=== PATIENT | female | born 2000 | race African-American/Black ===

== ENCOUNTER 2019-10-28 19:13 | Emergency (ER) | payer OTHER ==
[2019-10-28 19:19] VITALS: BP 115/62; PULSE 90; TEMP 98.2; BMI 31.1
--- NOTE | 2019-10-28 19:52 | PDOC ---
History of Present Illness - General Chief Complaint: Nausea/Vomiting Stated Complaint: VOMITTING Time Seen by Provider: 10/28/19 19:52 Past History - Past Medical History Allergies/Adverse Reactions: Allergies Allergy/AdvReac Type Severity Reaction Status Date / Time No Known Allergies Allergy Verified 10/28/19 19:16 Home Medications: Ambulatory Orders NK [No Known Home Medication] 12/07/14 - Immunization History Immunization Up to Date: Yes - Psycho Social/Smoking Cessation Hx Smoking History: Never smoked Drug/Substance Use Hx: Yes ([facility]) Substance Use Type: None *Physical Exam - Vital Signs Last Vital Signs Temp Pulse Resp BP Pulse Ox 98.2 F 90 18 115/62 98 10/28/19 19:16 10/28/19 19:16 10/28/19 19:16 10/28/19 19:16 10/28/19 19:16 Discharge - Follow up/Referral Referrals: Maria Castillo DO [Primary Care Provider] - - Patient Discharge Instructions - Post Discharge Activity
[2019-10-28] MEDS ORDERED: SODIUM CHLORIDE 1,000 ML IV STA (19:53)
[2019-10-28] MEDS ORDERED: ONDANSETRON 4 MG/2 ML VIAL IVPUSH ONE (19:53)
[2019-10-28] MEDS ORDERED: FAMOTIDINE 20 MG/50 ML IVPB 20 MG/50 ML MG IVPB ONE ×2 (19:53→20:10)
--- NOTE | 2019-10-28 19:55 | PDOC ---
History of Present Illness - General Chief Complaint: Nausea/Vomiting Stated Complaint: VOMITTING Time Seen by Provider: 10/28/19 19:52 Past History - Past Medical History Allergies/Adverse Reactions: Allergies Allergy/AdvReac Type Severity Reaction Status Date / Time No Known Allergies Allergy Verified 10/28/19 19:16 Home Medications: Ambulatory Orders NK [No Known Home Medication] 12/07/14 - Immunization History Immunization Up to Date: Yes - Psycho Social/Smoking Cessation Hx Smoking History: Never smoked Drug/Substance Use Hx: Yes ([facility]) Substance Use Type: None *Physical Exam - Vital Signs Last Vital Signs Temp Pulse Resp BP Pulse Ox 98.2 F 90 18 115/62 98 10/28/19 19:16 10/28/19 19:16 10/28/19 19:16 10/28/19 19:16 10/28/19 19:16 10/28/19 20:[address] Maria Castillo 18 y/o G0 female with no reported PMH c/o vomiting and vaginal bleeding This has never happened before. Pt reports that LMP was 22 Sep 2019 and has had persistent spotting daily, staining a thin panty liner. She is visiting ED today 2/2 vomiting x6, blood streaked and yellow streaked. She visited her PCP who recommended TVUS (she has one scheduled here at [facility] for Wednesday). She has not taken anything fro this concern. She reports associated, intermittent abdominal discomfort. The discomfort is located along the medial rectus, aching in character, occurs for a few seconds, assoc. with sexual activity, and relieved by rest. Denies fever, diarrhea, chills, and constipation. No new meds/herbs, drugs/supplements No recent illness, sick contacts, or recent travel Fam hx: Maternal grandmother with DM and HTN Surgical hx: Tonsilectomy (2004) Social hx: Never cigarette smoker, social etoh, marijuana use weekly; works at the [email or web address] store at [employer]; lives with mother and grandmother in an apartment in [place]; no pets in the house Sexual hx: currently sexually active with males only, h/o chlamydia that was treated REVIEW OF SYSTEMS CONSTITUTIONAL: Absent: fever, chills, diaphoresis, generalized weakness, malaise, loss of appetite, weight change HEENT: Absent: rhinorrhea, nasal congestion, throat pain, throat swelling, difficulty swallowing, mouth swelling, ear pain, eye pain, visual changes CARDIOVASCULAR: Absent: chest pain, syncope, palpitations, irregular heart rate, lightheadedness, peripheral edema RESPIRATORY: Absent: cough, shortness of breath, dyspnea with exertion, orthopnea, wheezing, stridor, hemoptysis GASTROINTESTINAL: Absent: abdominal pain, abdominal distension, nausea, vomiting, diarrhea, constipation, melena, hematochezia GENITOURINARY: Absent: dysuria, frequency, urgency, hesitancy, hematuria, flank pain, genital pain MUSCULOSKELETAL: Absent: myalgia, arthralgia, joint swelling, back pain, neck pain SKIN: Absent: rash, itching, pallor HEMATOLOGIC/IMMUNOLOGIC: Absent: easy bleeding, easy bruising, lymphadenopathy, frequent infections ENDOCRINE: Absent: unexplained weight gain, unexplained weight loss, heat intolerance, cold intolerance NEUROLOGIC: Absent: headache, focal weakness or paresthesias, dizziness, unsteady gait, seizure, mental status changes, bladder or bowel incontinence PSYCHIATRIC: Absent: anxiety, depression, suicidal or homicidal ideation, hallucinations. GENERAL: AO x3 NAD HEAD: NCAT EYES: ROXANE, EOMI, sclera anicteric, conjunctiva clear. No ptosis. ENT: Ears normal, nares patent, oropharynx clear without exudates, moist mucous membranes. NECK: Trachea midline, full range of motion, supple. LUNGS: CTAB , no wheezes, no crackles, no accessory muscle use. HEART: RRR, S1, S2 without murmur, rub or gallop. ABDOMEN: Soft, hirsuit hair distribution, nontender, nondistended, normoactive bowel sounds, no guarding, no rebound, no hepatosplenomegaly, no masses. Pelvic exam: abdominal exam as above, normal genital morphology, no gross bleeding, no gross dc. Speculum exam reveals pooled blood in vaginal vault, normal vaginal mucosa absent of erythema and lesions. Cervix closed with no edema nor erythema. No CMT. EXTREMITIES: 2+ pulses, warm, well-perfused, no edema. NEUROLOGICAL: Cranial nerves II through XII grossly intact. Strength 5/5 in UE and LE in both distal and proximal flexors. Brachial reflex 2+ BL. Patellar reflex 2+ BL. No dysdiadochokinesia. FTN NEG. Babinski NEG. Normal speech. Normal gait with appropriate strike phase, swing phase, and circumambulation PSYCH: Normal mood, normal affect. SKIN: Warm, dry, normal turgor, no rashes or lesions noted # incomplete VS ectopic VS viral gastritis - CBC, CMP, UA, U cx - Serum - NS 1L bolus - Zofran 10/28/19 21:58 Pt feels well and offers no complaints. No neurological symptoms including GARCIA nor dizziness. Labs WNL. No anion gap. Awaiting UA and if NL plan to dc. 10/28/19 22:51 UA WNL. Pt feels well. DC home with instruction to f/u with previously scheduled TVUS. ED Treatment Course - LABORATORY CBC & Chemistry Diagram: 10/28/19 20:23 10/28/19 20:23 Discharge - Discharge Information Problems reviewed: Yes Clinical Impression/Diagnosis: Viral gastritis Condition: Stable Disposition: HOME - Admission No - Additional Discharge Information Plan of Treatment: YOUR VISIT You came to the hospital because you were experiencing vomiting and vaginal bleeding. You were seen in the emergency department for care of these symptoms. You were given IV fluids and advised to keep your upcoming appointment for ultrasound. You are now stable and may return home. ADDITIONAL CARE Please make an appointment to see your primary care provider, Dr. Maria Castillo, 1 week from today. ADDITIONAL INFORMATION Please call 911 or come directly to the emergency department if you experience recurrence of the symptoms that brought you to the hospital, unusual headache, vision change, shortness of breath, chest pain, numbness, tingling, loss of alertness/awareness, loss of function, unusual bleeding or any alarming symptoms. - Follow up/Referral Referrals: Maria Castillo DO [Primary Care Provider] - - Patient Discharge Instructions - Post Discharge Activity
[2019-10-28] MEDS ORDERED: ONDANSETRON 4 MG/2 ML VIAL ONE (20:09)
--- NOTE | 2019-10-28 20:41 | PDOC ---
Attending Attestation - Resident Resident Name: Valentin Titus - ED Attending Attestation I have performed the following: I have examined & evaluated the patient, The case was reviewed & discussed with the resident, I agree w/resident's findings & plan - HPI HPI: 10/28/19 21:37 Pt comes with nausea and vomiting. 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; states that she ate a turkey and cheese sandwich yesterday with her boyfrie nd and his kids. She is the only one vomiting after the meal. Pt has had spotting for the past month, irreg periods. She is supposed to follow with her [employer] as an outpatient to work it up. Pt has never been . - Physicial Exam PE: 10/28/19 21:48 Normal exam Agree with resident exam - Medical Decision Making 10/28/19 21:48 Home with [employer] follow up. Pt is feeling better. Labs normal; pt was hydrated. Pt will be discharged after UA returns. 10/29/19 01:26 Urine normal and she can go
[2019-10-28 20:47] LABS: BASO % 0.2 % (0-2.0); HEMATOCRIT 39.8 % (32.4-45.2); HEMOGLOBIN 13.4 GM/dL (10.7-15.3); MCHC 33.6 g/dl (32.0-36.0); MEAN CELL VOLUME 92.2 fl (80-96); MEAN PLT VOLUME 8.8 fl (7.5-11.1); MONO % 2.7 % (3.8-10.2); NEUT % 86.1 % (42.8-82.8); PLATELET COUNT 237 K/MM3 (134-434); RBC 4.31 M/mm3 (3.60-5.2); RDW 14.3 % (11.6-15.6); WHITE BLOOD COUNT 6.5 K/mm3 (4.0-10.0)
[2019-10-28 21:18] LABS: ALBUMIN 4.1 g/dl (3.4-5.0); ALK PHOS 37 U/L (45-117); ANION GAP 8 MMOL/L (8-16); BILIRUBIN,TOTAL 0.8 mg/dL (0.2-1); BLOOD UREA NITROGEN 12.6 mg/dL (7-18); CHLORIDE 107 mmol/L (98-107); CO2 25 mmol/L (21-32); CREATININE 0.6 mg/dL (0.55-1.3); GLUCOSE,RANDOM 82 mg/dL (74-106); LIPASE 101 U/L (73-393); SGOT/AST 23 U/L (15-37); SGPT/ALT 16 U/L (13-61); SODIUM 140 mmol/L (136-145)
[2019-10-28 22:30] LABS: URINE APPEARANCE CLEAR; URINE BILIRUBIN NEGATIVE (NEGATIVE); URINE COLOR YELLOW; URINE GLUCOSE (UA) NEGATIVE (NEGATIVE); URINE KETONE 3+ (NEGATIVE); URINE LEUK ESTERASE NEGATIVE (NEGATIVE); URINE NITRITE NEGATIVE (NEGATIVE); URINE PROTEIN NEGATIVE (NEGATIVE)
== END 2019-10-28 23:08 | disposition home or self-care (01) ==
LOC: JER 19:13
PROC: 3E033GC Introduction of Other Therapeutic Substance into Peripheral Vein, Percutaneous Approach (ICD-10-PCS; principal; 2019-10-28)
PROC: 3E033GC Introduction of Other Therapeutic Substance into Peripheral Vein, Percutaneous Approach (ICD-10-PCS; 2019-10-28)
DX: K29.70 Gastritis, unspecified, without bleeding (principal); B97.89 Other viral agents as the cause of diseases classified elsewhere
CPT/HCPCS: 36415; 80053; 81003; 83690; 83735; 84702; 85025; 87086; 99284-25; J7030